=== PATIENT | male | born 1995 | race Caucasian/White ===

== ENCOUNTER 2020-03-24 18:14 | Emergency (ER) | payer OTHER ==
[~2020-03-24] VITALS: Ht 170.2 cm; Wt 60.4 kg
[2020-03-24] MEDS ORDERED: ONDANSETRON 2MG/ML, 2ML IVPush ONE (19:00)
[2020-03-24] MEDS ORDERED: SODIUM CHLORIDE 0.9% 1,000 ML IV ONE (19:00)
[2020-03-24] MEDS ORDERED: SODIUM CHLORIDE FLUSH 10ML SYR IVF ONE (19:00)
[2020-03-24] MEDS ORDERED: SODIUM CHLORIDE 0.9% 1,000ML IVBOLUS ONE (19:00)
[2020-03-24 19:02] LABS: BASOPHILS % (AUTO) 1 % (0-1); EOSINOPHILS % (AUTO) 0 % (1-7); LYMPHOCYTES % (AUTO) 34 % (22-44); MEAN CORPUSCULAR HEMOGLOBIN 31.2 pg (27.5-34.5); MEAN CORPUSCULAR HGB CONC 34.6 g/dL (33.2-36.2); MEAN PLATELET VOLUME 7.3 fL (7.4-10.4); MONOCYTES % (AUTO) 6 % (2-9); NEUTROPHILS % (AUTO) 59 % (42-75); PLATELET COUNT 246 x10^3/uL (130-400); RED BLOOD COUNT 4.65 x10^6/uL (4.38-5.82); RED CELL DISTRIBUTION WIDTH 12.5 % (9.4-14.8)
[2020-03-24 19:03] LABS: MD NO
[2020-03-24] MEDS ORDERED: ONDANSETRON 2MG/ML, 2ML ONE (19:06)
[2020-03-24 19:11] LABS: ALANINE AMINOTRANSFERASE 23 U/L (12-78); ALBUMIN 4.3 g/dL (3.4-5.0); ANION GAP 6 mmol/L (5-15); CALCIUM 9.8 mg/dL (8.5-10.1); CHLORIDE 110 mmol/L (98-107); CREATININE 0.85 mg/dL (0.7-1.3)
[2020-03-24 19:13] LABS: ALKALINE PHOSPHATASE 63 U/L (45-117); BILIRUBIN,TOTAL 1.8 mg/dL (0.2-1.0); TOTAL PROTEIN 7.4 g/dL (6.4-8.2)
--- NOTE | 2020-03-24 20:36 | NUR ---
UA collected and sent to lab.
[2020-03-24 21:09] LABS: MICROSCOPIC INDICATED
--- NOTE | 2020-03-24 21:10 | NUR ---
PT DRANK A CUP OF WATER WITH OUT NAUSEA.
[2020-03-24 21:49] VITALS: BP 104/66
== END 2020-03-24 21:51 | disposition home or self-care (01) ==
LOC: ED 18:44
DX: R11.2 Nausea with vomiting, unspecified (principal); R19.7 Diarrhea, unspecified
CPT/HCPCS: 36415; 80053; 81001; 83690; 85025; 87086; 96360; 96374; 99283; J2405; J7030